=== PATIENT | male | born 1965 | race Asian ===

== ENCOUNTER 2019-05-23 22:53 | Observation (INO) | payer OTHER ==
[2019-05-24] MEDS ORDERED: NACL 0.9% 1000 ML 2,000 ML IV ONE (00:08)
--- NOTE | 2019-05-24 00:10 | Emergency Department Report ---
ED General Adult HPI - General Chief complaint: Medical Clearance Stated complaint: GENERAL WEAKNESS Time Seen by Provider: 05/23/19 23:02 Source: patient, family, EMS ( EMS documentation not available at time of chart dictation ), RN notes reviewed Mode of arrival: Stretcher Limitations: No Limitations - History of Present Illness Initial comments: Primary care doctor: [facility] Past medical history: Hypertension, on lisinopril, HCTZ, and Norvasc. During the history and physical, I am fisheries officer and escorted by nurse Felipe Bishop This is a pleasant 53-year-old gentleman. This patient is not known to this provider previously. The patient is brought to the hospital by emergency medical services. The patient presents to the ER with a complaint of resolved weakness and confusion. Patient states that earlier on yesterday, he was in his usual state of health, he had a recreational glass of wine, and shortly thereafter, he began to feel weak, and had to lean over. Apparently he was confused. His was present, and states that there was no convulsive activity. The patient is now back to his baseline. Apparently, the patient was hypotensive to the 70s, with a GCS of 13. The patient endorses compliance with his medications, and is adamant that he is not taking a new medication, and is quite certain that he has not had any new or additional medications. He denies physical pain at this time. He denies bright red blood per rectum at this time. He denies DVT, pulmonary and wasn't at this time. He states he is back to baseline at this time. He has no additional complaints. -: Sudden Severity scale (0 -10): 0 Consistency: now resolved Improves with: none Worsens with: none - Related Data Allergies Allergy/AdvReac Type Severity Reaction Status Date / Time No Known Allergies Allergy Unverified 05/23/19 23:16 ED Review of Systems ROS: Stated complaint: GENERAL WEAKNESS Other details as noted in HPI Constitutional: malaise, weakness Eyes: denies: eye discharge ENT: denies: congestion Respiratory: denies: wheezing Cardiovascular: other (confusion, leaning forward, no pain). denies: chest pain Gastrointestinal: denies: nausea, vomiting, hematemesis, melena, hematochezia Genitourinary: denies: dysuria Musculoskeletal: denies: back pain Skin: denies: lesions Neurological: weakness, confusion Hematological/Lymphatic: denies: easy bleeding ED Past Medical Hx - Past Medical History Previous Medical History?: Yes Hx Hypertension: Yes - Surgical History Past Surgical History?: No - Social History Smoking Status: Never Smoker Substance Use Type: Alcohol ED Physical Exam - General Limitations: No Limitations General appearance: alert, anxious, obese - Head Head exam: Present: atraumatic, normocephalic - Eye Eye exam: Present: normal appearance, PERRL, EOMI, other (visual acuity intact to finger counting, color perception, reading at a close distance). Absent: nystagmus - ENT ENT exam: Present: normal exam, normal orophraynx, mucous membranes moist, normal external ear exam - Neck Neck exam: Present: normal inspection, full ROM. Absent: tenderness, meningis mus - Respiratory Respiratory exam: Present: normal lung sounds bilaterally. Absent: respiratory distress - Cardiovascular Cardiovascular Exam: Present: regular rate, normal rhythm, normal heart sounds. Absent: bradycardia, tachycardia, irregular rhythm, systolic murmur, diastolic murmur, rubs, gallop - GI/Abdominal GI/Abdominal exam: Present: soft. Absent: distended, tenderness, guarding, rebound, rigid, pulsatile mass - Rectal Rectal exam: Present: normal inspection, normal rectal tone, heme (-) stool, other (during physical examination, chaperoned by nurse Felipe Bishop). Absent: heme (+) stool, black stool, bloody stool, fecal impaction, hemorrhoids - Extremities Exam Extremities exam: Present: normal inspection, full ROM, other (2+ pulses noted in the bilateral upper, lower extremities. There is no long bone tenderness. Musculoskeletal compartments are soft. The pelvis is stable.). Absent: calf tenderness - Back Exam Back exam: Present: normal inspection, full ROM. Absent: tenderness, CVA tenderness (R), CVA tenderness (L), paraspinal tenderness, vertebral tenderness - Neurological Exam Neurological exam: Present: alert, oriented X3, CN II-XII intact, normal gait (there is no pass pointing. There is no pronator drift. There is normal [id number]. There is normal gait. There is negative pronator drift. There is negative Romberg examination.), other (there is no facial droop. The tongue is midline. Extraocular movements are intact bilaterally. Patient speaking in full complete sentences. Shoulder shrug is intact bilaterally. Hearing is grossly intact bilaterally. Visual acuity intact to finger counting and color perception at a close distance. 5/5 strength 4 extremities. Sensation intact to light touch in 4 extremities.). Absent: motor sensory deficit - Psychiatric Psychiatric exam: Present: anxious - Skin Skin exam: Present: warm, dry, intact, normal color. Absent: rash ED Course Vital Signs 05/23/19 05/23/19 22:59 23:09 Temperature 98.4 F Pulse Rate 74 Respiratory 16 16 Rate Blood Pressure 111/71 [Left] O2 Sat by Pulse 97 Oximetry - Reevaluation(s) Reevaluation #1: 05/24/19 01:[address] scan of the brain is negative for acute disease. ED Medical Decision Making - Lab Data Result diagrams: 05/24/19 00:21 05/24/19 00:21 Vital Signs 05/23/19 05/23/19 22:59 23:09 Temperature 98.4 F Pulse Rate 74 Respiratory 16 16 Rate Blood Pressure 111/71 [Left] O2 Sat by Pulse 97 Oximetry Lab Results 05/24/19 05/24/19 05/24/19 Range/Units 00:21 00:21 00:21 WBC 4.5 (4.5-11.0) K/mm3 RBC 4.81 (3.65-5.03) M/mm3 Hgb 14.0 (11.8-15.2) gm/dl Hct 42.6 (35.5-45.6) % MCV 89 (84-94) fl MCH 29 (28-32) pg MCHC 33 (32-34) % RDW 13.1 L (13.2-15.2) % Plt Count 181 (140-440) K/mm3 PT 13.9 (12.2-14.9) Sec. INR 1.10 (0.87-1.13) D-Dimer 221.16 (0-234) ng/mlDDU Sodium 139 (137-145) mmol/L Potassium 3.5 L (3.6-5.0) mmol/L Chloride 101.6 (98-107) mmol/L Carbon Dioxide 24 (22-30) mmol/L Anion Gap 17 mmol/L BUN 12 (9-20) mg/dL Creatinine 1.0 (0.8-1.5) mg/dL Estimated GFR > 60 ml/min BUN/Creatinine Ratio 12 % Glucose 113 H (75-100) mg/dL Calcium 9.1 (8.4-10.2) mg/dL Magnesium (1.7-2.3) mg/dL Total Bilirubin 0.70 (0.1-1.2) mg/dL AST 14 (5-40) units/L ALT 13 (7-56) units/L Alkaline Phosphatase 59 (35-129) units/L Total Creatine Kinase 92 (55-170) units/L Troponin T < 0.010 (0.00-0.029) ng/mL Total Protein 7.3 (6.3-8.2) g/dL Albumin 4.0 (3.9-5) g/dL Albumin/Globulin Ratio 1.2 % TSH (0.270-4.200) mlU/mL Salicylates (2.8-20.0) mg/dL Plasma/Serum Alcohol (0-0.07) % 05/24/19 05/24/19 05/24/19 Range/Units 00:21 00:21 00:21 WBC (4.5-11.0) K/mm3 RBC (3.65-5.03) M/mm3 Hgb (11.8-15.2) gm/dl Hct (35.5-45.6) % MCV (84-94) fl MCH (28-32) pg MCHC (32-34) % RDW (13.2-15.2) % Plt Count (140-440) K/mm3 PT (12.2-14.9) Sec. INR (0.87-1.13) D-Dimer (0-234) ng/mlDDU Sodium (137-145) mmol/L Potassium (3.6-5.0) mmol/L Chloride (98-107) mmol/L Carbon Dioxide (22-30) mmol/L Anion Gap mmol/L BUN (9-20) mg/dL Creatinine (0.8-1.5) mg/dL Estimated GFR ml/min BUN/Creatinine Ratio % Glucose (75-100) mg/dL Calcium (8.4-10.2) mg/dL Magnesium (1.7-2.3) mg/dL Total Bilirubin (0.1-1.2) mg/dL AST (5-40) units/L ALT (7-56) units/L Alkaline Phosphatase (35-129) units/L Total Creatine Kinase (55-170) units/L Troponin T (0.00-0.029) ng/mL Total Protein (6.3-8.2) g/dL Albumin (3.9-5) g/dL Albumin/Globulin Ratio % TSH 5.180 H (0.270-4.200) mlU/mL Salicylates < 0.3 L (2.8-20.0) mg/dL Plasma/Serum Alcohol < 0.01 (0-0.07) % 05/24/19 Range/Units 00:21 WBC (4.5-11.0) K/mm3 RBC (3.65-5.03) M/mm3 Hgb (11.8-15.2) gm/dl Hct (35.5-45.6) % MCV (84-94) fl MCH (28-32) pg MCHC (32-34) % RDW (13.2-15.2) % Plt Count (140-440) K/mm3 PT (12.2-14.9) Sec. INR (0.87-1.13) D-Dimer (0-234) ng/mlDDU Sodium (137-145) mmol/L Potassium (3.6-5.0) mmol/L Chloride (98-107) mmol/L Carbon Dioxide (22-30) mmol/L Anion Gap mmol/L BUN (9-20) mg/dL Creatinine (0.8-1.5) mg/dL Estimated GFR ml/min BUN/Creatinine Ratio % Glucose (75-100) mg/dL Calcium (8.4-10.2) mg/dL Magnesium 2.10 (1.7-2.3) mg/dL Total Bilirubin (0.1-1.2) mg/dL AST (5-40) units/L ALT (7-56) units/L Alkaline Phosphatase (35-129) units/L Total Creatine Kinase (55-170) units/L Troponin T (0.00-0.029) ng/mL Total Protein (6.3-8.2) g/dL Albumin (3.9-5) g/dL Albumin/Globulin Ratio % TSH (0.270-4.200) mlU/mL Salicylates (2.8-20.0) mg/dL Plasma/Serum Alcohol (0-0.07) % - EKG Data -: EKG Interpreted by Me EKG shows normal: sinus rhythm Rate: normal - EKG Data When compared to previous EKG there are: previous EKG unavailable 05/24/19 01:39 There is no prior EKG available for comparison. This shows a sinus rhythm, 65 bpm, normal axis, QTC is 413 ms, there is left ventricular hypertrophy, there are numerous T-wave abnormalities, there is no chest pain, the EKG is abnormal, the EKG is not consistent with ST elevation myocardial infarction. - Radiology Data Radiology results: report reviewed, image reviewed interpreted by me: Noncontrast CT scan of the brain is reviewed by myself, it does not demonstrate any acute disease int Report Referring Physician: JIA ROMO Patient Name: SINTIA KAM Date of : 1965 Sex: Male Report Date: 2019-05-24 Report Status: Finalized Findings [facility] [address] [place] [address] XRay Report Signed Patient: SINTIA KAM MR#: [id number] 66 : 1965 Acct:[id number] Age/Sex: 53 / M ADM Date: 05/23/19 Loc: ED Attending Dr: Ordering Physician: JIA ROMO MD Date of Service: 05/24/19 Procedure(s): XR chest 1V ap Accession Number(s): [id number] cc: JIA ROMO MD Fluoro Time In Minutes: CHEST 1 VIEW INDICATION / CLINICAL INFORMATION: syncope weakness. COMPARISON: None available. FINDINGS: SUPPORT DEVICES: None. HEART / MEDIASTINUM: No significant abnormality. LUNGS / PLEURA: No significant pulmonary or pleural abnormality. No pneumothorax. ADDITIONAL FINDINGS: There is gaseous distention of either the stomach or splenic flexure of the colon. IMPRESSION: 1. No acute findings. Signer Name: Mina Saleh MD Signed: 05/24/2019 12:48 AM Workstation Name: [id number] Transcribed By: MD Dictated By: Mina Saleh MD Electronically Authenticated By: Mina Saleh MD Signed Date/Time: 05/24/1945 DD/ - Medical Decision Making Differential diagnosis, including not limited to: Orthostasis, vagal event, structural cardiac disease, acute coronary syndrome, transient ischemic attack, pulmonary embolism, medication interaction, GI bleed Assessment and plan: 53-year-old gentleman with episode of confusion, hypotension, now resolved. He is not tachycardic, not hypoxic, not tachypneic, has a negative d-dimer, and has no pulmonary embolism or DVT risk factors. He has a GCS of 15, with NIH score of 0 at this time, not a TPA candidate for the aforementioned, and history and physical do not suggest large vessel occlusion. cbc is unremarkable, patient is guaiac-negative from below, therefore, GI bleed is unlikely. EKG morphologically abnormal without prior for comparison, no recent cardiac risk stratification or evaluation of the patient is aware of. Given history, physical, age, I find the patient to be moderate risk by heart score for major adverse cardiac event, therefore, we will admit the patient for further workup and evaluation. Discussed this with the patient and family, who verbalizes understanding, and who are amenable to this plan of care. Case is presented to the Hospital physician, Dr. Odell, who accepts the patient to her service. Critical care attestation.: If time is entered above; I have spent that time in minutes in the direct care of this critically ill patient, excluding procedure time. ED Disposition Clinical Impression: History of hypotension, Abnormal EKG, History of confusion Disposition: DC-09 OP ADMIT IP TO THIS HOSP Is pt being admited?: Yes Condition: Good Referrals: PRIMARY CARE, [Primary Care Provider] - 3-5 Days
[2019-05-24 00:50] LABS: Hematocrit 42.6 % (35.5-45.6); Mean Corpuscular HGB Conc 33 % (32-34); Mean Corpuscular Volume 89 fl (84-94); Platelet Count 181 K/mm3 (140-440); Red Blood Count 4.81 M/mm3 (3.65-5.03); Red Cell Distribution Width 13.1 % (13.2-15.2)
--- NOTE | 2019-05-24 00:53 | XRay Report ---
CHEST 1 VIEW INDICATION / CLINICAL INFORMATION: syncope weakness. COMPARISON: None available. FINDINGS: SUPPORT DEVICES: None. HEART / MEDIASTINUM: No significant abnormality. LUNGS / PLEURA: No significant pulmonary or pleural abnormality. No pneumothorax. ADDITIONAL FINDINGS: There is gaseous distention of either the stomach or splenic flexure of the colo n. IMPRESSION: 1. No acute findings. Signer Name: Mina Saleh MD Signed: 05/24/2019 12:48 AM Workstation Name: [id number]
[2019-05-24 01:22] LABS: Alanine Aminotransferase 13 units/L (7-56); BUN/Creatinine Ratio 12; Blood Urea Nitrogen 12 mg/dL (9-20); Calcium 9.1 mg/dL (8.4-10.2); Hemolysis Index 13
[2019-05-24 01:26] LABS: INR 1.1 (0.87-1.13)
--- NOTE | 2019-05-24 01:37 | Cat Scan Report ---
CT head/brain wo con INDICATION / CLINICAL INFORMATION: Syncope. TECHNIQUE: All CT scans at this location are performed using CT dose reduction for ALARA by means of automated e xposure control. COMPARISON: None available. FINDINGS: No intracranial hemorrhage. Abnormal extra-axial fluid collections. No evidence of territorial infarction or mass effect. The ventricular system and basilar cisterns are normal. The paranasal sinuses and osseous structures are normal. IMPRESSION: 1. No acute intracranial abnormality Signer Name: Mina Saleh MD Signed: 05/24/2019 1:33 AM Workstation Name: [id number]
[2019-05-24] MEDS ORDERED: BABY ASPIRIN PO ONE (01:43)
[2019-05-24] MEDS ORDERED: SODIUM CHLORIDE FLUSH SYRINGE 10 ML IV PRN (01:53)
[2019-05-24] MEDS ORDERED: TYLENOL PO PRN (01:53)
[2019-05-24] MEDS ORDERED: ZOFRAN IV PRN (01:53)
[2019-05-24] MEDS ORDERED: MILK OF MAGNESIA PO PRN (01:53)
--- NOTE | 2019-05-24 01:56 | History and Physical Report ---
<CLEO LINDSAY - Last Filed: 05/24/19 02:25> History of Present Illness Date of examination: 05/24/19 Date of admission: 05/24/19 Chief complaint: syncope History of present illness: Pt is a 53-year-old male with PMHx of hypertension who was taking to the ER by EMS for c/o dizziness and near syncope. Pt states that he just got home and started to have dinner when the he gets very lightheaded and almost passed out. Pt states that EMS was called, they report a very low blood pressure in the 70's, patient was then taking to the ED for further evaluation. Pt denies any palpitation, denies chest pain, denies LOC, denies seizure activity, denies bladder or bowel incontinence, denies post tical confusion or disorientation. Pt states that he forgot to take his BP med today, he had an EKG in the ER that showed abnormal T, diffuse leads ST elevation, consider anterior injury. Pt is admitted for further evaluation. Past History Past Medical History: hypertension Past Surgical History: No surgical history Social history: no significant social history, Family history: no significant family history Medications and Allergies Allergies Allergy/AdvReac Type Severity Reaction Status Date / Time No Known Allergies Allergy Verified 05/24/19 01:48 Active Meds: Active Medications Acetaminophen (Tylenol) 650 mg PO Q4H PRN PRN Reason: Pain MILD(1-3)/Fever >100.5/LINDSAY Enoxaparin Sodium (Lovenox) 30 mg SUB-Q QDAY JAIDEN Ondansetron HCl (Zofran) 4 mg IV Q8H PRN PRN Reason: Nausea And Vomiting Sodium Chloride (Sodium Chloride Flush Syringe 10 Ml) 10 ml IV BID JAIDEN Sodium Chloride (Sodium Chloride Flush Syringe 10 Ml) 10 ml IV PRN PRN PRN Reason: LINE FLUSH Review of Systems Constitutional: malaise Neurological: syncope Exam - Constitutional Vitals: Temp Pulse Resp BP Pulse Ox 98.4 F 74 16 111/71 97 05/23/19 22:59 05/23/19 22:59 05/23/19 23:09 05/23/19 22:59 05/23/19 23:09 General appearance: Present: no acute distress - EENT Eyes: Present: EOM intact ENT: hearing intact - Neck Neck: Present: supple, normal ROM - Respiratory Respiratory effort: normal Respiratory: bilateral: CTA - Cardiovascular Rhythm: regular Heart Sounds: Present: S1 & S2 - Extremities Extremities: no ischemia, No edema Peripheral Pulses: within normal limits - Abdominal General gastrointestinal: Present: deferred Male genitourinary: Present: deferred - Rectal Rectal Exam: deferred - Integumentary Integumentary: Present: warm, dry - Musculoskeletal Musculoskeletal: strength equal bilaterally - Psychiatric Psychiatric: cooperative - Neurologic Neurologic: moves all extremities Results - Labs CBC & Chem 7: 05/24/19 00:21 05/24/19 00:21 Labs: Laboratory Last Values WBC 4.5 K/mm3 (4.5-11.0) 05/24/19 00:21 RBC 4.81 M/mm3 (3.65-5.03) 05/24/19 00:21 Hgb 14.0 gm/dl (11.8-15.2) 05/24/19 00: Hct 42.6 % (35.5-45.6) 05/24/19 00: MCV 89 fl (84-94) 05/24/19 00:21 MCH 29 pg (28-32) 05/24/19 00:21 MCHC 33 % (32-34) 05/24/19 00:21 RDW 13.1 % (13.2-15.2) L 05/24/19 00:21 Plt Count 181 K/mm3 (140-440) 05/24/19 00: PT 13.9 Sec. (12.2-14.9) 05/24/19 00:21 INR 1.10 (0.87-1.13) 05/24/19 00:21 D-Dimer 221.16 ng/mlDDU (0-234) 05/24/19 00:21 Sodium 139 mmol/L (137-145) 05/24/19 00:21 Potassium 3.5 mmol/L (3.6-5.0) L 05/24/19 00:21 Chloride 101.6 mmol/L (98-107) 05/24/19 00:21 Carbon Dioxide 24 mmol/L (22-30) 05/24/19 00:21 Anion Gap 17 mmol/L 05/24/19 00:21 BUN 12 mg/dL (9-20) 05/24/19 00:21 Creatinine 1.0 mg/dL (0.8-1.5) 05/24/19 00: Estimated GFR > 60 ml/min 05/24/19: BUN/Creatinine Ratio 12 % 05/24/19: Glucose 113 mg/dL (75-100) H 05/24/19:21 Calcium 9.1 mg/dL (8.4-10.2) 05/24/19: Magnesium 2.10 mg/dL (1.7-2.3) 05/24/19: Total Bilirubin 0.70 mg/dL (0.1-1.2) 05/24/19: AST 14 units/L (5-40) 05/24/19: ALT 13 units/L (7-56) 05/24/19: Alkaline Phosphatase 59 units/L (35-129) 05/24/19: Total Creatine Kinase 92 units/L (55-170) 05/24/19: Troponin T < 0.010 ng/mL (0.00-0.029) 05/24/19: Total Protein 7.3 g/dL (6.3-8.2) 05/24/19: Albumin 4.0 g/dL (3.9-5) 05/24/19 00: Albumin/Globulin Ratio 1.2 % 05/24/19: TSH 5.180 mlU/mL (0.270-4.200) H 05/24/19: Salicylates < 0.3 mg/dL (2.8-20.0) L 05/24/19: Acetaminophen < 5.0 ug/mL (10.0-30.0) L 05/24/19 00: Plasma/Serum Alcohol < 0.01 % (0-0.07) 05/24/19 00:21 Assessment and Plan Assessment and plan: 1. Acute syncope (r/o cardiac vrs neurolody etiology) 2. H/o HNT 3. Hypotension 4. Abnormal EKG Plan: Admit to [facility] for syncope Consult cardiology for evaluation 2D echo Bilateral carotid doppler study Orthostatic VS Further plan per hospital course DVT prophylaxis with lovenox Advance Directives: Yes VTE prophylaxis?: Chemical Plan of care discussed with patient/family: Yes <RICO CONNOR - Last Filed: 05/24/19 04:04> History of Present Illness Date of admission: 05/24/19 03:06 Medications and Allergies Active Meds: Active Medications Acetaminophen (Tylenol) 650 mg PO Q4H PRN PRN Reason: Pain MILD(1-3)/Fever >100.5/LINDSAY Enoxaparin Sodium (Lovenox) 40 mg SUB-Q QDAY@1000 JAIDNE Sodium Chloride (Nacl 0.9% 1000 Ml) 1,000 mls @ 75 mls/hr IV DIRECT JAIDEN Last Admin: 05/24/19 03:25 Dose: 75 mls/hr Documented by: Magnesium Hydroxide (Milk Of Magnesia) 30 ml PO Q4H PRN PRN Reason: Constipation Ondansetron HCl (Zofran) 4 mg IV Q8H PRN PRN Reason: Nausea And Vomiting Sodium Chloride (Sodium Chloride Flush Syringe 10 Ml) 10 ml IV BID JAIDEN Sodium Chloride (Sodium Chloride Flush Syringe 10 Ml) 10 ml IV PRN PRN PRN Reason: LINE FLUSH Exam - Constitutional Vitals: Temp Pulse Resp BP Pulse Ox 98.4 F 74 16 111/71 97 05/23/19 22:59 05/23/19 22:59 05/23/19 23:09 05/23/19 22:59 05/23/19 23:09 Results - Labs CBC & Chem 7: 05/24/19 00:21 05/24/19 00:21 Labs: Laboratory Last Values WBC 4.5 K/mm3 (4.5-11.0) 05/24/19 00:21 RBC 4.81 M/mm3 (3.65-5.03) 05/24/19 00:21 Hgb 14.0 gm/dl (11.8-15.2) 05/24/19 00:21 Hct 42.6 % (35.5-45.6) 05/24/19 00:21 MCV 89 fl (84-94) 05/24/19 00:21 MCH 29 pg (28-32) 05/24/19 00:21 MCHC 33 % (32-34) 05/24/19 00:21 RDW 13.1 % (13.2-15.2) L 05/24/19 00:21 Plt Count 181 K/mm3 (140-440) 05/24/19 00: PT 13.9 Sec. (12.2-14.9) 05/24/19: INR 1.10 (0.87-1.13) 05/24/19 00: D-Dimer 221.16 ng/mlDDU (0-234) 05/24/19: Sodium 139 mmol/L (137-145) 05/24/19: Potassium 3.5 mmol/L (3.6-5.0) L 05/24/19: Chloride 101.6 mmol/L (98-107) 05/24/19: Carbon Dioxide 24 mmol/L (22-30) 05/24/19: Anion Gap 17 mmol/L 05/24/19: BUN 12 mg/dL (9-20) 05/24/19: Creatinine 1.0 mg/dL (0.8-1.5) 05/24/19: Estimated GFR > 60 ml/min 05/24/19: BUN/Creatinine Ratio 12 % 05/24/19: Glucose 113 mg/dL (75-100) H 05/24/19: Calcium 9.1 mg/dL (8.4-10.2) 05/24/19: Magnesium 2.10 mg/dL (1.7-2.3) 05/24/19: Total Bilirubin 0.70 mg/dL (0.1-1.2) 05/24/19: AST 14 units/L (5-40) 05/24/19: ALT 13 units/L (7-56) 05/24/19: Alkaline Phosphatase 59 units/L (35-129) 05/24/19: Total Creatine Kinase 92 units/L (55-170) 05/24/19: Troponin T < 0.010 ng/mL (0.00-0.029) 05/24/19: Total Protein 7.3 g/dL (6.3-8.2) 05/24/19: Albumin 4.0 g/dL (3.9-5) 05/24/19: Albumin/Globulin Ratio 1.2 % 05/24/19 00:21 TSH 5.180 mlU/mL (0.270-4.200) H 05/24/19 00:21 Salicylates < 0.3 mg/dL (2.8-20.0) L 05/24/19:21 Acetaminophen < 5.0 ug/mL (10.0-30.0) L 05/24/19 00:21 Plasma/Serum Alcohol < 0.01 % (0-0.07) 05/24/19 00:21 Assessment and Plan Assessment and plan: 53-year-old man with a history of hypertension comes emergency room with complaints of almost passing out. He stated that he got home, eating his dinner and drank a glass of wine, after which his symptoms started. Muscles: His systolic blood pressure 77 him he did not take his antihypertensive today area denies any other symptoms. Physical exam is benign. Agree with plan as stated above, except add asa
[2019-05-24] MEDS ORDERED: NACL 0.9% 1000 ML 1,000 ML IV SCH (02:00)
[2019-05-24 07:41] LABS: Bilirubin,Urine NEG (Negative); Blood,Urine NEG (Negative); Color,Urine Yellow (Yellow); Mucus,Urine FEW /HPF; Protein,Urine <15 mg/dL mg/dL (Negative); Urobilinogen,Urine < 2.0 mg/dL (<2.0)
[2019-05-24 07:53] LABS: Amphetamine Screen,Urine PRESUMPTIVE NEGATIVE; Benzodiazepines Screen,Urine PRESUMPTIVE NEGATIVE; Cannabinoid Screen,Urine PRESUMPTIVE NEGATIVE; Cocaine Screen,Urine PRESUMPTIVE NEGATIVE; Methadone Screen,Urine PRESUMPTIVE NEGATIVE; Opiate Screen,Urine PRESUMPTIVE NEGATIVE
[2019-05-24] MEDS ORDERED: K-DUR PO ONE (08:51)
[2019-05-24] MEDS ORDERED: ENOXAPARIN SUB-Q SCH (10:00)
--- NOTE | 2019-05-24 10:41 | Vascular Lab Report ---
BILATERAL CAROTID DOPPLER ULTRASOUND INDICATION : syncope. Dizziness with generalized weakness for one day. TECHNIQUE: Grayscale and color Doppler imaging performed through the neck. COMPARISON: None FINDINGS: Right: There is no significant atherosclerotic disease. Peak systolic velocity in the CCA is 76 cm/ s with end-diastolic velocity of 17 cm/s. Peak systolic velocity in the proximal ICA is 78 cm/s with end-diastolic velocity of 33 cm/s. ICA to CCA ratio is less than 2. There is antegrade flow in the E CA and the vertebral artery. Left: There is mild smooth noncalcified plaque in the carotid bulb. Peak systolic velocity in the CCA is 85 cm/s with end-diastolic velocity of 23 cm/s. Peak systolic velocity in the proximal ICA is 93 cm/s with end-diastolic velocity of 38 cm/s. ICA to CCA ratio is less than 2. There is antegrade marshall w in the ECA and the vertebral artery. IMPRESSION: No hemodynamically significant stenosis by NASCET criteria. There is less than 50% narrow ing throughout both carotid systems by Doppler velocities. Signer Name: Anthony Orantes Jr, MD Signed: 05/24/2019 10:37 AM Workstation Name: [id number]
[2019-05-24] MEDS: BABY ASPIRIN PO SCH (10:45)
[2019-05-24] MEDS: ENOXAPARIN SUB-Q SCH ×2 (10:46→10:51)
[2019-05-24] MEDS: SODIUM CHLORIDE FLUSH SYRINGE 10 ML IV SCH ×2 (11:18→22:05)
--- NOTE | 2019-05-24 11:37 | Consultation ---
<KAYCEE BETANCUR - Last Filed: 05/24/19 11:33> History of Present Illness Consult date: 05/24/19 Consult reason: chest pain History of present illness: This is a 53-year old male with chronic hypertension managed with Amlodipine, Lisinopril and Hydrochlorothiazide. Patient was brought in by EMS with altered mental status, dizziness and hypotension. It's reported a blood pressure of 74/46 on EMS arrival. Patient had no chest pain, no unusual shortness of breath and no palpitations. Patient denies loss of consciousness. Head CT scan reports no acute abnormality. 12 lead ECG is sinus rhythm with Twave abnormalities. No prior ECG available for comparison. Cardiac consultation has been requested. Past History Past Medical History: hypertension Past Surgical History: No surgical history Social history: no significant social history, Family history: no significant family history Medications and Allergies Allergies Allergy/AdvReac Type Severity Reaction Status Date / Time No Known Allergies Allergy Verified 05/24/19 01:48 Home Medications Medication Instructions Recorded Confirmed Last Taken Type Lisinopril [Zestril TAB] 10 mg PO QDAY 05/24/19 05/24/19 2 Days Ago History ~05/22/19 amLODIPine [Norvasc] 10 mg PO DAILY 05/24/19 05/24/19 2 Days Ago History ~05/22/19 hydroCHLOROthiazide [Hctz] 12.5 mg PO QDAY 05/24/19 05/24/19 2 Days Ago History ~05/22/19 Active Meds: Active Medications Acetaminophen (Tylenol) 650 mg PO Q4H PRN PRN Reason: Pain MILD(1-3)/Fever >100.5/LINDSAY Aspirin (Baby Aspirin) 81 mg PO QDAY [facility] Last Admin: 05/24/19 10:45 Dose: 81 mg Documented by: Enoxaparin Sodium (Lovenox) 40 mg SUB-Q QDAY@1000 [facility] Last Admin: 05/24/19 10:51 Dose: Not Given Documented by: Magnesium Hydroxide (Milk Of Magnesia) 30 ml PO Q4H PRN PRN Reason: Constipation Ondansetron HCl (Zofran) 4 mg IV Q8H PRN PRN Reason: Nausea And Vomiting Sodium Chloride (Sodium Chloride Flush Syringe 10 Ml) 10 ml IV BID [facility] Last Admin: 05/24/19 11:18 Dose: 10 ml Documented by: Sodium Chloride (Sodium Chloride Flush Syringe 10 Ml) 10 ml IV PRN PRN PRN Reason: LINE FLUSH Physical Examination Vital Signs Temp Pulse Resp BP 98.4 F 74 16 111/71 05/23/19 22:59 05/23/19 22:59 05/23/19 22:59 05/23/19 22:59 General appearance: no acute distress HEENT: Positive: PERRL Neck: Positive: trachea midline Cardiac: Positive: Reg Rate and Rhythm Lungs: Positive: Normal Breath Sounds Neuro: Positive: Grossly Intact Extremities: Absent: edema Results 05/24/19 00:21 05/24/19 00:21 Cardiac Enzymes 05/24/19 Range/Units 00:21 AST 14 (5-40) units/L Coagulation 05/24/19 Range/Units 00:21 PT 13.9 (12.2-14.9) Sec. INR 1.10 (0.87-1.13) CBC 05/24/19 Range/Units 00:21 WBC 4.5 (4.5-11.0) K/mm3 RBC 4.81 (3.65-5.03) M/mm3 Hgb 14.0 (11.8-15.2) gm/dl Hct 42.6 (35.5-45.6) % Plt Count 181 (140-440) K/mm3 Comprehensive Metabolic Panel 05/24/19 Range/Units 00:21 Sodium 139 (137-145) mmol/L Potassium 3.5 L (3.6-5.0) mmol/L Chloride 101.6 (98-107) mmol/L Carbon Dioxide 24 (22-30) mmol/L BUN 12 (9-20) mg/dL Creatinine 1.0 (0.8-1.5) mg/dL Glucose 113 H (75-100) mg/dL Calcium 9.1 (8.4-10.2) mg/dL AST 14 (5-40) units/L ALT 13 (7-56) units/L Alkaline Phosphatase 59 (35-129) units/L Total Protein 7.3 (6.3-8.2) g/dL Albumin 4.0 (3.9-5) g/dL Assessment and Plan Near syncope TSH 5.1 History of hypertension but hypotensive on EMS arrival Abnormal ECG pt denies chest pain Recommend: Echocardiogram for LVEF assessment. <JAI CUENCA - Last Filed: 05/24/19 17:15> Medications and Allergies Active Meds: Active Medications Acetaminophen (Tylenol) 650 mg PO Q4H PRN PRN Reason: Pain MILD(1-3)/Fever >100.5/LINDSAY Aspirin (Baby Aspirin) 81 mg PO QDAY [facility] Last Admin: 05/24/19 10:45 Dose: 81 mg Documented by: Enoxaparin Sodium (Lovenox) 40 mg SUB-Q QDAY@1000 [facility] Last Admin: 05/24/19 10:51 Dose: Not Given Documented by: Magnesium Hydroxide (Milk Of Magnesia) 30 ml PO Q4H PRN PRN Reason: Constipation Ondansetron HCl (Zofran) 4 mg IV Q8H PRN PRN Reason: Nausea And Vomiting Sodium Chloride (Sodium Chloride Flush Syringe 10 Ml) 10 ml IV BID [facility] Last Admin: 05/24/19 11:18 Dose: 10 ml Documented by: Sodium Chloride (Sodium Chloride Flush Syringe 10 Ml) 10 ml IV PRN PRN PRN Reason: LINE FLUSH Physical Examination Vital Signs Temp Pulse Resp BP 98.4 F 74 16 111/71 05/23/19 22:59 05/23/19 22:59 05/23/19 22:59 05/23/19 22:59 Results 05/24/19 00:21 05/24/19 00:21 Cardiac Enzymes 05/24/19 Range/Units 00:21 AST 14 (5-40) units/L Coagulation 05/24/19 Range/Units 00:21 PT 13.9 (12.2-14.9) Sec. INR 1.10 (0.87-1.13) CBC 05/24/19 Range/Units 00:21 WBC 4.5 (4.5-11.0) K/mm3 RBC 4.81 (3.65-5.03) M/mm3 Hgb 14.0 (11.8-15.2) gm/dl Hct 42.6 (35.5-45.6) % Plt Count 181 (140-440) K/mm3 Comprehensive Metabolic Panel 05/24/19 Range/Units 00:21 Sodium 139 (137-145) mmol/L Potassium 3.5 L (3.6-5.0) mmol/L Chloride 101.6 (98-107) mmol/L Carbon Dioxide 24 (22-30) mmol/L BUN 12 (9-20) mg/dL Creatinine 1.0 (0.8-1.5) mg/dL Glucose 113 H (75-100) mg/dL Calcium 9.1 (8.4-10.2) mg/dL AST 14 (5-40) units/L ALT 13 (7-56) units/L Alkaline Phosphatase 59 (35-129) units/L Total Protein 7.3 (6.3-8.2) g/dL Albumin 4.0 (3.9-5) g/dL Assessment and Plan I have seen and evaluated the patient and agree with the assessment and plan. Patient presents to the hospital with near syncope. Patient was hypotensive on arrival to the hospital. Recommend decrease antihypertensive therapy. Check echo for LV assessment. orthostatic blood pressures. Check carotid doppler, TSH and FT4. Monitor telemetry. consider outpatient event monitor.
--- NOTE | 2019-05-24 14:52 | Event Note ---
Date: 05/24/19 Patient seen and examined, clinically stable at this time. Will continue to monitor. Discussed with Spouse at bedside, she reports that she was not aware that he was taken Norvasc in addition to all his other meds. Will continue to hold all antihypertensive at this time.
--- NOTE | 2019-05-25 08:58 | Progress Note ---
Assessment and Plan Near syncope secondary to hypotension Echocardiogram shows a normal left ventricular systolic function, EF 50-55%. History of hypertension but hypotensive on EMS arrival Amlodipine and HCTZ held; pt restarted on Zestril Subjective Date of service: 05/25/19 Interval history: Patient has no complaints. He denies dizziness. Systolic BP of 138. Objective Vital Signs Temp Pulse Resp BP Pulse Ox 05/25/19 04:06 98.5 F 73 16 141/94 98 05/24/19 23:31 97.8 F 54 L 16 142/92 97 05/24/19 19:37 98.6 F 66 16 152/101 97 05/24/19 19:24 75 05/24/19 16:31 98.1 F 70 18 125/88 99 05/24/19 10:00 66 - Physical Examination General: No Apparent Distress HEENT: Positive: PERRL Neck: Positive: trachea midline Cardiac: Positive: Reg Rate and Rhythm Lungs: Positive: Normal Breath Sounds Neuro: Positive: Grossly Intact Extremities: Absent: edema
[2019-05-25] MEDS: ENOXAPARIN SUB-Q SCH ×2 (09:38→09:40)
[2019-05-25] MEDS: BABY ASPIRIN PO SCH (09:39)
[2019-05-25] MEDS: SODIUM CHLORIDE FLUSH SYRINGE 10 ML IV SCH (09:39)
[2019-05-25] MEDS ORDERED: ZESTRIL PO SCH (10:00)
--- NOTE | 2019-05-25 10:25 | Progress Note ---
Assessment and Plan - Patient Problems (1) Hypertension Current Visit: Yes Status: Chronic Plan to address problem: restart lisinopril (2) Hypotension Current Visit: Yes Status: Acute Qualifiers: Hypotension type: idiopathic hypotension Qualified Code(s): I95.0 - Idiopathic hypotension Plan to address problem: orthostatics done and normal all BP meds held on admission no issues with hypotension since admission (3) Abnormal EKG Current Visit: Yes Status: Acute Plan to address problem: cardiology consulted echocardiogram ordered EF 50-55% impaired LV diastolic filling (4) Syncope Current Visit: Yes Status: Acute Plan to address problem: cardiology following carotid doppler done-normal echo done-EF 50-55% no change in BP with orthostatics History Interval history: Patient is a 53 year old man with history of hypertension brought in by EMS for dizziness and near syncope. On arrival EMS found patient to be hypotensive with SBP in the 70's. Denied chest pain, palpitations, or loss of consciousness at the time. EKG in ER showed abnormal t waves, diffuse leads ST elevation, consider anterior injury. Patient admitted and cardiology consulted. Hospitalist Physical - Constitutional Vitals: Temp Pulse Resp BP Pulse Ox 98.5 F 78 16 134/99 90 05/25/19 04:06 05/25/19 10:00 05/25/19 04:06 05/25/19 09:38 05/25/19 10:00 General appearance: Present: no acute distress - EENT Eyes: Present: PERRL ENT: hearing intact - Respiratory Respiratory effort: normal Respiratory: bilateral: CTA - Cardiovascular Rhythm: regular Heart Sounds: Present: S1 & S2 - Extremities Extremities: pulses intact, No edema Peripheral Pulses: within normal limits - Abdominal General gastrointestinal: soft, non-tender - Psychiatric Psychiatric: appropriate mood/affect Results - Labs CBC & Chem 7: 05/24/19 00:21 05/24/19 00:21 Labs: Laboratory Last Values WBC 4.5 K/mm3 (4.5-11.0) 05/24/19 00:21 RBC 4.81 M/mm3 (3.65-5.03) 05/24/19 00:21 Hgb 14.0 gm/dl (11.8-15.2) 05/24/19 00:21 Hct 42.6 % (35.5-45.6) 05/24/19 00:21 MCV 89 fl (84-94) 05/24/19 00:21 MCH 29 pg (28-32) 05/24/19 00:21 MCHC 33 % (32-34) 05/24/19 00:21 RDW 13.1 % (13.2-15.2) L 05/24/19 00:21 Plt Count 181 K/mm3 (140-440) 05/24/19 00: PT 13.9 Sec. (12.2-14.9) 05/24/19 00:21 INR 1.10 (0.87-1.13) 05/24/19 00:21 D-Dimer 221.16 ng/mlDDU (0-234) 05/24/19 00:21 Sodium 139 mmol/L (137-145) 05/24/19 00:21 Potassium 3.5 mmol/L (3.6-5.0) L 05/24/19 00: Chloride 101.6 mmol/L (98-107) 05/24/19 00: Carbon Dioxide 24 mmol/L (22-30) 05/24/19 00: Anion Gap 17 mmol/L 05/24/19 00:21 BUN 12 mg/dL (9-20) 05/24/19 00:21 Creatinine 1.0 mg/dL (0.8-1.5) 05/24/19 00:21 Estimated GFR > 60 ml/min 05/24/19 00: BUN/Creatinine Ratio 12 % 05/24/19 00:21 Glucose 113 mg/dL (75-100) H 05/24/19 00:21 POC Glucose 109 (70-105) H 05/24/19 07:01 Calcium 9.1 mg/dL (8.4-10.2) 05/24/19 00:21 Magnesium 2.10 mg/dL (1.7-2.3) 05/24/19 00:21 Total Bilirubin 0.70 mg/dL (0.1-1.2) 05/24/19 00:21 AST 14 units/L (5-40) 05/24/19 00:21 ALT 13 units/L (7-56) 05/24/19 00:21 Alkaline Phosphatase 59 units/L (35-129) 05/24/19 00:21 Total Creatine Kinase 92 units/L (55-170) 05/24/19 00:21 Troponin T < 0.010 ng/mL (0.00-0.029) 05/24/19 00:21 Total Protein 7.3 g/dL (6.3-8.2) 05/24/19 00:21 Albumin 4.0 g/dL (3.9-5) 05/24/19 00:21 Albumin/Globulin Ratio 1.2 % 05/24/19 00:21 TSH 3.710 mlU/mL (0.270-4.200) 05/24/19 18:50 Free T4 1.23 ng/dL (0.76-1.46) 05/24/19 18:50 Urine Color Yellow (Yellow) 05/24/19 07:02 Urine Turbidity Clear (Clear) 05/24/19 07:02 Urine pH 6.0 (5.0-7.0) 05/24/19 07:02 Ur Specific [place] 1.029 (1.003-1.030) 05/24/19 07:02 Urine Protein <15 mg/dl mg/dL (Negative) 05/24/19 07:02 Urine Glucose (UA) Neg mg/dL (Negative) 05/24/19 07:02 Urine Ketones Neg mg/dL (Negative) 05/24/19 07:02 Urine Blood Neg (Negative) 05/24/19 07:02 Urine Nitrite Neg (Negative) 05/24/19 07:02 Urine Bilirubin Neg (Negative) 05/24/19 07:02 Urine Urobilinogen < 2.0 mg/dL (<2.0) 05/24/19 07:02 Ur Leukocyte Esterase Neg (Negative) 05/24/19 07:02 Urine WBC (Auto) 3.0 /HPF (0.0-6.0) 05/24/19 07:02 Urine RBC (Auto) 1.0 /HPF (0.0-6.0) 05/24/19 07:02 U Epithel Cells (Auto) < 1.0 /HPF (0-13.0) 05/24/19 07:02 Urine Mucus Few /HPF 05/24/19 07:02 Salicylates < 0.3 mg/dL (2.8-20.0) L 05/24/19 00:21 Urine Opiates Screen Presumptive negative 05/24/19 07:02 Urine Methadone Screen Presumptive negative 05/24/19 07:02 Acetaminophen < 5.0 ug/mL (10.0-30.0) L 05/24/19 00:21 Ur Barbiturates Screen Presumptive negative 05/24/19 07:02 Ur Phencyclidine Scrn Presumptive negative 05/24/19 07:02 Ur Amphetamines Screen Presumptive negative 05/24/19 07:02 U Benzodiazepines Scrn Presumptive negative 05/24/19 07:02 Urine Cocaine Screen Presumptive negative 05/24/19 07:02 U Marijuana (THC) Screen Presumptive negative 05/24/19 07:02 Drugs of Abuse Note Disclamer 05/24/19 07:02 Plasma/Serum Alcohol < 0.01 % (0-0.07) 05/24/19 00:21 - Imaging and Cardiology EKG: report reviewed (abnormal t waves, ST elevation ) Imaging and Cardiology: echo and carotid doppler studies reviewed Active Medications - Current Medications Current Medications: Generic Name Dose Route Start Last Admin Trade Name Freq PRN Reason Stop Dose Admin Acetaminophen 650 mg 05/24/19 01:53 Tylenol PO Q4H PRN Pain MILD(1-3)/Fever >100.5/LINDSAY Aspirin 81 mg 05/24/19 10:00 05/25/19 09:39 Baby Aspirin PO 81 mg QDAY JAIDEN Administration Enoxaparin Sodium 40 mg 05/24/19 10:00 05/25/19 09:40 Lovenox SUB-Q Not Given QDAY@1000 [facility] Lisinopril 20 mg 05/25/19 10:00 05/25/19 09:38 Zestril PO 20 mg QDAY JAIDEN Administration Magnesium Hydroxide 30 ml 05/24/19 01:53 Milk Of Magnesia PO Q4H PRN Constipation Ondansetron HCl 4 mg 05/24/19 01:53 Zofran IV Q8H PRN Nausea And Vomiting Sodium Chloride 10 ml 05/24/19 10:00 05/25/19 09:39 Sodium Chloride Flush Syringe 10 Ml IV 10 ml BID JAIDEN Administration Sodium Chloride 10 ml 05/24/19 01:53 Sodium Chloride Flush Syringe 10 Ml IV PRN PRN LINE FLUSH
--- NOTE | 2019-05-25 12:56 | Discharge Summary ---
Providers - Providers Date of Admission: 05/24/19 03:06 Attending physician: ORLANDO SALVADOR MD 05/24/19 03:09 Consult to Cardiology [CONS] Routine Consulting Provider: STACIA CASTANON Reason For Exam: chest pain Primary care physician: ANNMARIE RICHARDS MD Hospitalization Condition: Stable Hospital course: Patient seen and examined Lisinopril adjusted to 20mg PO daily, HCTZ add. Stop Norvasc Keep Diary of BP and present to the doctor to evaluate Disposition: DC-01 TO HOME OR SELFCARE Time spent for discharge: 35 MINS Core Measure Documentation - Palliative Care Palliative Care/ Comfort Measures: Not Applicable - Core Measures Any of the following diagnoses?: none Exam - Constitutional Vitals: Temp Pulse Resp BP Pulse Ox 98.5 F 78 16 134/99 90 05/25/19 04:06 05/25/19 10:00 05/25/19 04:06 05/25/19 09:38 05/25/19 10:00 Plan Activity: advance as tolerated, fall precautions Diet: low fat Special Instructions: record daily BP diary Plan of Treatment: Needs event monitor - follow with cardiology for Event Monitor. Follow up with: ANNMARIE RICHARDS MD [Primary Care Provider] - 3-5 Days SENIA ALBA MD [Staff Physician] - 7 Days Prescriptions: hydroCHLOROthiazide [HCTZ] 12.5 mg PO QDAY #30 cap Lisinopril [Zestril TAB] 20 mg PO QDAY #30 tablet
[2019-05-25 12:57] VITALS: BP 138/102
== END 2019-05-25 14:27 | disposition home or self-care (01) ==
LOC: ED 22:53 → 4A 05-24 03:06
PROVIDERS: ADMIT Internal Medicine; ATTEND Internal Medicine
DX: R55 Syncope and collapse (principal); I10 Essential (primary) hypertension; I95.9 Hypotension, unspecified; R94.31 Abnormal electrocardiogram [ECG] [EKG]
CPT/HCPCS: 36415; 70450; 71045; 80053; 80307; 81001; 82271; 82550; 82962; 83735; 84439; 84443; 84484; 85027; 85379; 85610; 93005; 93010; 93306; 93880; 96360; 96361; 99284; G0378; J1650; J7030; 80320; G0480; J2405

== ENCOUNTER 2020-12-26 00:33 | Emergency (ER) | payer SELFPAY ==
[2020-12-26] MEDS ORDERED: ONDANSETRON 4 MG ODT TAB PO ONE (02:23)
[2020-12-26] MEDS ORDERED: HYDROcodone/ACETAMINOPHEN 5-325 MG TAB PO ONE (02:23)
[2020-12-26] MEDS ORDERED: IBUPROFEN 600 MG TAB PO ONE (02:23)
--- NOTE | 2020-12-26 02:31 | Emergency Department Report ---
ED Lower Extremity HPI - General Chief Complaint: Extremity Injury, Lower Stated Complaint: RT TOE INJURY/WORK RELATED Source: patient Mode of arrival: Ambulatory Limitations: No Limitations - History of Present Illness Initial Comments: Patient is a 55-year-old -[place] male with no past medical history presents to the ED with complaint of acute onset persistent severe dorsal right foot pain and right great toe pain after a heavy metallic object fell onto his right foot about 2 hours ago at work. Patient states that he is unable to bear weight on the right foot because of worsening right great toe pain. Patient states that the pain is especially worse with ambulation, palpation or weightbearing on the right foot. Patient denies fall, dizziness, syncope, naus ea and vomiting, numbness and tingling or weakness of right foot, loss of consciousness, heavy lifting or back pain. MD Complaint: foot injury (right foot and right great toe pain with swelling) -: Sudden, hour(s) (2) Injury: Foot: Right (distal right foot pain), Toes: Right (distal right great toe pain) Type of Injury: blunt (Heavy object dropped and fell onto his right great toe and foot) Place: work Severity: severe Severity scale (0 -10): 9 Improves With: nothing Worsens With: weight bearing, movement, palpation Context: direct blow (Heavy metallic object fell onto his right foot) Associated Symptoms: swelling, able to partially bear weight. denies: numbness, tingling, unable to bear weight, ambulatory - Related Data Previous Rx's Medication Instructions Recorded Last Taken Type hydroCHLOROthiazide [HCTZ] 12.5 mg PO QDAY #30 cap 05/25/19 Unknown Rx lisinopriL [Zestril TAB] 20 mg PO QDAY #30 tablet 05/25/19 Unknown Rx HYDROcodone/APAP 5-325 [[place] 1 each PO Q6HR PRN #12 tablet 12/26/20 Unknown Rx 5/325] Ibuprofen [Motrin] 800 mg PO Q8HR PRN #30 tablet 12/26/20 Unknown Rx Allergies Allergy/AdvReac Type Severity Reaction Status Date / Time No Known Allergies Allergy Verified 05/24/19 01:48 ED Review of Systems ROS: Stated complaint: RT TOE INJURY/WORK RELATED Other details as noted in HPI Constitutional: denies: chills, fever Eyes: denies: eye pain, eye discharge, vision change ENT: denies: ear pain, throat pain Respiratory: denies: cough, shortness of breath, wheezing Cardiovascular: denies: chest pain, palpitations Endocrine: no symptoms reported Gastrointestinal: denies: abdominal pain, nausea, diarrhea Genitourinary: denies: urgency, dysuria Musculoskeletal: joint swelling (Right great toe swelling), arthralgia (Dorsal right foot and right great toe pain). denies: back pain Skin: denies: rash, lesions Neurological: denies: headache, weakness, paresthesias Psychiatric: denies: anxiety, depression Hematological/Lymphatic: denies: easy bleeding, easy bruising ED Past Medical Hx - Past Medical History Previous Medical History?: Yes Hx Hypertension: Yes Hx Congestive Heart Failure: No Hx Diabetes: No Hx Asthma: No Hx COPD: No Hx HIV: No - Social History Smoking Status: Never Smoker Substance Use Type: Alcohol - Medications Home Medications: Home Medications Medication Instructions Recorded Confirmed Last Taken Type hydroCHLOROthiazide [HCTZ] 12.5 mg PO QDAY #30 cap 05/25/19 Unknown Rx lisinopriL [Zestril TAB] 20 mg PO QDAY #30 tablet 05/25/19 Unknown Rx HYDROcodone/APAP 5-325 [[place] 1 each PO Q6HR PRN #12 tablet 12/26/20 Unknown Rx 5/325] Ibuprofen [Motrin] 800 mg PO Q8HR PRN #30 tablet 12/26/20 Unknown Rx ED Physical Exam - General Limitations: No Limitations General appearance: alert, in no apparent distress - Head Head exam: Present: atraumatic, normocephalic, normal inspection - Eye Eye exam: Present: normal appearance, PERRL, EOMI Pupils: Present: normal accommodation - ENT ENT exam: Present: normal exam, normal orophraynx, mucous membranes moist, TM's normal bilaterally, normal external ear exam - Neck Neck exam: Present: normal inspection, full ROM - Respiratory Respiratory exam: Present: normal lung sounds bilaterally. Absent: respiratory distress, wheezes, rhonchi, stridor, chest wall tenderness, accessory muscle use, prolonged expiratory - Cardiovascular Cardiovascular Exam: Present: regular rate, normal rhythm, normal heart sounds. Absent: systolic murmur, diastolic murmur, rubs, gallop - GI/Abdominal GI/Abdominal exam: Present: soft, normal bowel sounds. Absent: tenderness, guarding, rebound, hyperactive bowel sounds, hypoactive bowel sounds, organomegaly - Extremities Exam Extremities exam: Present: normal inspection, tenderness (Palpable severe right great toe tenderness with mild swelling and limited range of motion due to pain), normal capillary refill, joint swelling. Absent: full ROM (Limited range of motion of dorsal right foot and right great toe due to pain), pedal edema, calf tenderness - Back Exam Back exam: Present: normal inspection, full ROM. Absent: tenderness, CVA tenderness (R), CVA tenderness (L), muscle spasm, paraspinal tenderness, vertebral tenderness - Neurological Exam Neurological exam: Present: alert, oriented X3, CN II-XII intact, normal gait, reflexes normal - Psychiatric Psychiatric exam: Present: normal affect, normal mood - Skin Skin exam: Present: warm, dry, intact, normal color. Absent: rash ED Course Vital Signs 12/26/20 01:52 Temperature 98.4 F Pulse Rate 65 Respiratory 18 Rate Blood Pressure 164/103 O2 Sat by Pulse 98 Oximetry ED Lower Extremity MDM - Radiology Data Radiology results: report reviewed, image reviewed [address] [address] XRay Report Signed Patient: SINTIA KAM MR#: [id number] 64 : 1965 Acct:[id number] Age/Sex: 55 / M ADM Date: 12/26/20 Loc: ED Attending Dr: Ordering Physician: CAROLYN HORTON III, MD Date of Service: 12/26/20 Procedure(s): XR foot 3+V RT Accession Number(s): [id number] cc: CAROLYN HORTON III, MD Fluoro Time In Minutes: RIGHT FOOT 3 VIEWS INDICATION / CLINICAL INFORMATION: Right foot pain and swelling, s/p "pump fell on toe" COMPARISON: None available. FINDINGS: BONES and JOINT(S): There is an acute mildly displaced transverse fracture through the distal third of the distal phalanx of the first toe. No dislocation. No significant arthritis. SOFT TISSUES: Mild edema is seen along the first toe without other significant abnormalities. ADDITIONAL FINDINGS: None. IMPRESSION: Acute right first toe fracture as above. Signer Name: Tim Goodson MD Signed: 12/26/2020 2:29 AM Workstation Name: [id number] Transcribed By: MN Dictated By: Tim Goodson MD Electronically Authenticated By: Tim Goodson MD Signed Date/Time: 12/26/20228 DD/ 7 TD/TT: - Medical Decision Making This is a 55-year-old -[place] male with past medical history of hypertension who presents to the ED with complaint of acute onset persistent severe dorsal right foot pain and right great toe pain after a heavy metallic object fell onto his right foot about 2 hours ago at work. Patient states that he is unable to bear weight on the right foot because of worsening right great toe pain. Patient states that the pain is especially worse with ambulation, palpation or weight-bearing on the right foot. In the ED, patient is alert and oriented x3 and is not in any distress but appears to be in severe pain on his dorsal right great toe and foot. Patient was treated for pain in the ED and right foot x-ray showed an acute mildly displaced transverse fracture through the distal third of the distal phalanx of the first toe. No dislocation. No significant arthritis. The right great toe was katarina taped with the second toe and patient fitted with a postop shoe. On reevaluation, patient pain is well controlled medication. Patient was therefore discharged home on pain medications and given a referral to the orthopedic surgeon on-call Dr. Peewee Felton for further evaluation. Patient is advised return to the ED immediately if symptoms get worse. - Differential Diagnosis Toe fracture; foot fracture; foot contusion; great toe contusion Critical care attestation.: If time is entered above; I have spent that time in minutes in the direct care of this critically ill patient, excluding procedure time. ED Disposition Clinical Impression: Fracture of distal phalanx of right great toe Qualifiers: Encounter type: initial encounter Fracture type: closed Fracture alignment: displaced Qualified Code(s): S92.421A - Displaced fracture of distal phalanx of right great toe, initial encounter for closed fracture Contusion of right foot including toes Qualifiers: Encounter type: initial encounter Qualified Code(s): S90.31XA - Contusion of right foot, initial encounter Disposition: - TO HOME OR SELFCARE Is pt being admited?: No Does the pt Need Aspirin: No Condition: Stable Instructions: Toe Fracture, [id number], Foot Contusion, [id number], Crush Injury of the Foot, [id number] Additional Instructions: The right foot x-ray showed an acute mildly displaced transverse fracture through the distal third of the distal phalanx of the first toe. Therefore take medications as needed with food for pain, drink plenty of fluids and follow-up with the orthopedic surgeon on-call Dr. Vides in 2 to 3 days for reevaluation. Return to the ED immediately if symptoms get worse. Prescriptions: Ibuprofen [Motrin] 800 mg PO Q8HR PRN #30 tablet PRN Reason: Pain , Severe (7-10) HYDROcodone/APAP 5-325 [[place] 5/325] 1 each PO Q6HR PRN #12 tablet PRN Reason: Pain Referrals: GRZEGORZ VIDES MD [Staff Physician] - 3-5 Days Forms: Work/School Release Form(ED) Time of Disposition: 02:34 Print Language: ANDORRAN
[2020-12-26 02:32] VITALS: BP 164/103
--- NOTE | 2020-12-26 02:34 | XRay Report ---
RIGHT FOOT 3 VIEWS INDICATION / CLINICAL INFORMATION: Right foot pain and swelling, s/p "pump fell on toe" COMPARISON: None available. FINDINGS: BONES and JOINT(S): There is an acute mildly displaced transverse fracture through the distal third o f the distal phalanx of the first toe. No dislocation. No significant arthritis. SOFT TISSUES: Mild edema is seen along the first toe without other significant abnormalities. ADDITIONAL FINDINGS: None. IMPRESSION: Acute right first toe fracture as above. Signer Name: Tim Goodson MD Signed: 12/26/2020 2:29 AM Workstation Name: [id number]
== END 2020-12-26 02:45 | disposition home or self-care (01) ==
LOC: ED 00:33
DX: S92.421A Displaced fracture of distal phalanx of right great toe, initial encounter for closed fracture (principal); S90.31XA Contusion of right foot, initial encounter; I10 Essential (primary) hypertension; Z72.89 Other problems related to lifestyle; Z79.899 Other long term (current) drug therapy; W01.198A Fall on same level from slipping, tripping and stumbling with subsequent striking against other object, initial encounter; Y93.89 Activity, other specified; Y92.89 Other specified places as the place of occurrence of the external cause; Y99.8 Other external cause status
CPT/HCPCS: 99283; Q0162

== ENCOUNTER 2022-04-01 15:32 | Emergency (ER) | payer SELFPAY ==
[2022-04-01 16:11] VITALS: BP 143/92
== END 2022-04-01 21:40 | disposition left against medical advice (07) ==
LOC: ED 15:32
DX: M79.671 Pain in right foot (principal); Z53.21 Procedure and treatment not carried out due to patient leaving prior to being seen by health care provider